=== PATIENT | female | born 1955 | race African-American/Black ===

== ENCOUNTER 2016-12-05 04:11 | Inpatient (IN) | payer MEDICARE, MEDICAID ==
[2016-12-05] VITALS (55 sets, daily range): BP systolic 67–146; BP diastolic 16–111
[~2016-12-05] VITALS: Ht 172.7 cm; Wt 95.3 kg
[~2016-12-05 04:11] MED LIST: CINA30 PO; DIPH25CA83 PO; GABA-290 PO; SEVE800T8 PO; SIMV10TA2; TRAM50TA3 PO; VITA-290
[2016-12-05 05:21] LABS: INR 2.3; PROTHROMBIN TIME 23.4 sec
[2016-12-05 05:27] LABS: HEMATOCRIT. 38.2 % (36.0-48.0); HEMOGLOBIN. 12.7 g/dL (12.0-16.0); MEAN CORPUSCULAR HEMOGLOBIN 30.3 pg (28.0-32.0); MEAN PLATELET VOLUME 9.4 fl (7.4-10.4); PLATELET 65 x1000/uL (130-400); RED BLOOD CELL COUNT 4.19 mill/uL (4.2-5.4); RED CELL DISTRIBUTION WIDTH 16.1 % (11.6-14.6)
[2016-12-05 05:31] LABS: CARBON DIOXIDE 29 mEq/L (21-32); CHLORIDE 92 mEq/L (98-107); TROPONIN I 0.15 ng/mL (0.00-0.04)
[2016-12-05] MEDS ORDERED: SODIUM CHLORIDE 0.9% 500 ML IV ONE (05:34)
[2016-12-05] MEDS ORDERED: PIPERACILLIN/TAZ 3.375G PREMIX 50 ML IV ONE (05:45)
[2016-12-05] MEDS ORDERED: VANCOMYCIN 1,500 MG in DEXT 5% WATER 250 ML IV SCH (05:45)
[2016-12-05] MEDS ORDERED: LEVOFLOXACIN 750MG PREMIX 150 ML IV ONE (05:45)
[2016-12-05] MEDS ORDERED: ONDANSETRON HCL 4MG/2ML VIAL IV STA (06:13)
[2016-12-05] MEDS ORDERED: MORPHINE SULFATE 4 MG/ML CPJ (NOT FOR IM USE) IV STA (06:13)
[2016-12-05] MEDS ORDERED: ASPIRIN 325MG TABLET PO ONE (06:15)
[2016-12-05] MEDS ORDERED: ENOXAPARIN 40MG/0.4ML SYR SUBCUT SCH (07:15)
[2016-12-05] MEDS ORDERED: ACETAMINOPHEN 325MG TABLET PO PRN (07:15)
[2016-12-05] MEDS ORDERED: CLONIDINE 0.1MG TABLET PO PRN (07:15)
[2016-12-05] MEDS ORDERED: PIPERACILLIN/TAZ 3.375G PREMIX 50 ML IV SCH (07:15)
[2016-12-05] MEDS ORDERED: HYDROMORPHONE HCL/PF 2MG/ML CPJ IV PRN (07:15)
[2016-12-05] MEDS ORDERED: ONDANSETRON HCL 4MG/2ML VIAL IV PRN (07:15)
[2016-12-05] MEDS ORDERED: SODIUM CHLORIDE 0.45% 1,000 ML IV SCH (07:30)
[2016-12-05] MEDS ORDERED: NOREPINEPHRINE 4 MG in DEXT 5% WATER 246 ML IV ONE (07:45)
[2016-12-05] MEDS ORDERED: NOREPINEPHRINE 4 MG in DEXT 5% WATER 246 ML IV PRN (08:00)
[2016-12-05] MEDS ORDERED: DEXTROSE 50% WATER 50ML SYRINGE IV ONE ×2 (09:45→09:48)
[2016-12-05] MEDS ORDERED: ETOMIDATE 2MG/ML 10ML VIAL IV ONE (10:00)
[2016-12-05] MEDS ORDERED: SUCCINYLCHOLINE CHLORIDE 200MG/10ML VIAL IV ONE (10:00)
[2016-12-05 10:31] LABS: PLATELET ESTIMATE DECREASED
[2016-12-05 11:52] LABS: BG BASE EXCESS -1.1 mmol/L (-2.0-2.0); BG CARBOXYHEMOGLOBIN 1.7 % (0.5-1.5); BG DEOXYHEMOGLOBIN 13.1 % (0.0-5.0); BG FRACTION INSPIRED OXYGEN 36; BG HCO3 ACT 23.7 mmol/L (22.0-26.0); BG METHEMOGLOBIN 0.4 % (0.0-1.5); BG OXYGEN SATURATION 86.6 % (92.0-98.5); BG OXYHEMOGLOBIN 84.8 % (94.0-97.0); BG PCO2 39.7 mmHg (35.0-45.0); BG PH 7.393 (7.350-7.450); BG PO2 58.1 mmHg (75.0-100.0); BG SAMPLE SITE LEFT RADIAL; BG TOTAL HEMOGLOBIN 13.2 g/dL (12.0-18.0); BG VENT MODE NASAL CANNULA
[2016-12-05] MEDS ORDERED: ENOXAPARIN 30MG/0.3ML SYR SUBCUT SCH (12:00)
[2016-12-05] MEDS ORDERED: IPRATROPIUM/ALBUTEROL 0.5-3(2.5)MG/3ML NEB INH SCH (12:00)
[2016-12-05] MEDS ORDERED: RACEPINEPHRINE 2.25% 0.5ML NEB VIAL HHN PRN (12:30)
[2016-12-05] MEDS: PROPOFOL 10MG/ML 100ML 100 ML IV PRN ×2 (12:41→19:17)
[2016-12-05] MEDS ORDERED: PIPERACILLIN/TAZ 2.25G PREMIX 50 ML IV SCH (14:00)
[2016-12-05 14:34] LABS: BG BASE EXCESS -3.5 mmol/L (-2.0-2.0); BG CARBOXYHEMOGLOBIN 1.5 % (0.5-1.5); BG DEOXYHEMOGLOBIN 13.8 % (0.0-5.0); BG FRACTION INSPIRED OXYGEN 100; BG METHEMOGLOBIN 0.4 % (0.0-1.5); BG OXYGEN SATURATION 85.9 % (92.0-98.5); BG OXYHEMOGLOBIN 84.3 % (94.0-97.0); BG PCO2 47.7 mmHg (35.0-45.0); BG PH 7.302 (7.350-7.450); BG PO2 59.4 mmHg (75.0-100.0); BG SAMPLE SITE LEFT RADIAL; BG TIDAL VOLUME(mL) 500 mL; BG VENT MODE VENT - A/C; BG VENT RATE 12 set
[2016-12-05] MEDS: NOREPINEPHRINE 16 MG in DEXT 5% WATER 234 ML IV PRN ×2 (15:32→21:43)
[2016-12-05] MEDS: PANTOPRAZOLE SODIUM 40 MG/VIAL IV SCH (15:35)
[2016-12-05] MEDS: IPRATROPIUM/ALBUTEROL 0.5-3(2.5)MG/3ML NEB INH SCH ×3 (16:13→23:24)
[2016-12-05] MEDS: ACETYLCYSTEINE 100MG/ML 10% VIAL 4ML INH SCH ×2 (16:14→23:24)
[2016-12-05] MEDS: PHENYLEPHRINE 40 MG in DEXT 5% WATER 246 ML IV PRN ×2 (16:46→20:36)
[2016-12-05 17:14] LABS: BG BASE EXCESS -5.7 mmol/L (-2.0-2.0); BG CARBOXYHEMOGLOBIN 1.3 % (0.5-1.5); BG DEOXYHEMOGLOBIN 4.1 % (0.0-5.0); BG FRACTION INSPIRED OXYGEN 100; BG HCO3 ACT 19.5 mmol/L (22.0-26.0); BG METHEMOGLOBIN 0.4 % (0.0-1.5); BG OXYGEN SATURATION 95.8 % (92.0-98.5); BG OXYHEMOGLOBIN 94.2 % (94.0-97.0); BG PCO2 37.2 mmHg (35.0-45.0); BG PH 7.337 (7.350-7.450); BG PO2 87.9 mmHg (75.0-100.0); BG SAMPLE SITE LEFT RADIAL; BG TIDAL VOLUME(mL) 500 mL; BG TOTAL HEMOGLOBIN 14.3 g/dL (12.0-18.0); BG VENT MODE VENT - A/C; BG VENT RATE 16 set
[2016-12-05] MEDS: MEROPENEM 1,000 MG in SODIUM CHLORIDE 0.9% 100 ML IV SCH (17:30)
[2016-12-05] MEDS: GUAIFENESIN 200MG TABLET PO SCH ×2 (17:43→22:22)
[2016-12-05] MEDS: DOXYCYCLINE 100 MG in DEXT 5% WATER 100 ML IV SCH (18:23)
[2016-12-05] MEDS ORDERED: PROPOFOL 10MG/ML 100ML 100 ML IV PRN (19:45)
[2016-12-06] VITALS (100 sets, daily range): BP systolic 46–166; BP diastolic 24–115
[2016-12-06] MEDS: PHENYLEPHRINE 40 MG in DEXT 5% WATER 246 ML IV PRN (00:20)
[2016-12-06] MEDS: PHENYLEPHRINE 80 MG in DEXT 5% WATER 500 ML IV PRN ×3 (03:27→19:03)
[2016-12-06] MEDS: PROPOFOL 10MG/ML 100ML 100 ML IV PRN ×2 (03:28→15:54)
[2016-12-06] MEDS: ACETYLCYSTEINE 100MG/ML 10% VIAL 4ML INH SCH (04:21)
[2016-12-06] MEDS: IPRATROPIUM/ALBUTEROL 0.5-3(2.5)MG/3ML NEB INH SCH ×5 (04:22→20:30)
[2016-12-06 05:31] LABS: HEMATOCRIT. 43.3 % (36.0-48.0); HEMOGLOBIN. 13.8 g/dL (12.0-16.0); MEAN CORPUSCULAR HEMOGLOBIN 30.6 pg (28.0-32.0); MEAN CORPUSCULAR VOLUME 95.7 fL (81.0-99.0); MEAN PLATELET VOLUME 9.7 fl (7.4-10.4); PLATELET 56 x1000/uL (130-400); RED BLOOD CELL COUNT 4.52 mill/uL (4.2-5.4)
[2016-12-06] MEDS: GUAIFENESIN 200MG TABLET PO SCH (05:52)
[2016-12-06] MEDS: DOXYCYCLINE 100 MG in DEXT 5% WATER 100 ML IV SCH ×2 (06:00→18:00)
[2016-12-06 07:02] LABS: PLATELET ESTIMATE DECREASED
[2016-12-06 08:31] LABS: BG BASE EXCESS -4.6 mmol/L (-2.0-2.0); BG CARBOXYHEMOGLOBIN 1.1 % (0.5-1.5); BG DEOXYHEMOGLOBIN 9.3 % (0.0-5.0); BG FRACTION INSPIRED OXYGEN 100; BG HCO3 ACT 20.7 mmol/L (22.0-26.0); BG METHEMOGLOBIN 0.4 % (0.0-1.5); BG OXYGEN SATURATION 90.6 % (92.0-98.5); BG OXYHEMOGLOBIN 89.2 % (94.0-97.0); BG PCO2 38.9 mmHg (35.0-45.0); BG PH 7.343 (7.350-7.450); BG PO2 64.7 mmHg (75.0-100.0); BG SAMPLE SITE LEFT RADIAL; BG TIDAL VOLUME(mL) 500 mL; BG TOTAL HEMOGLOBIN 13.8 g/dL (12.0-18.0); BG VENT MODE VENT - A/C; BG VENT RATE 16 set
[2016-12-06] MEDS: PANTOPRAZOLE SODIUM 40 MG/VIAL IV SCH (09:21)
[2016-12-06] MEDS: NOREPINEPHRINE 16 MG in DEXT 5% WATER 234 ML IV PRN ×2 (10:15→23:37)
[2016-12-06] MEDS: MORPHINE SULFATE 2 MG/ML CPJ (NOT FOR IM USE) IV PRN ×2 (12:28→17:09)
[2016-12-06] MEDS ORDERED: VANCOMYCIN 1500MG in DEXTROSE 5% WATER 250ML IV NR (14:00)
[2016-12-06] MEDS: MEROPENEM 1,000 MG in SODIUM CHLORIDE 0.9% 100 ML IV SCH (18:00)
[2016-12-06] MEDS ORDERED: DIGOXIN 500MCG/2ML AMP IV NR (19:00)
[2016-12-07] VITALS (108 sets, daily range): BP systolic 61–146; BP diastolic 22–128
[2016-12-07] MEDS: IPRATROPIUM/ALBUTEROL 0.5-3(2.5)MG/3ML NEB INH SCH ×2 (00:33→04:19)
[2016-12-07] MEDS: PHENYLEPHRINE 80 MG in DEXT 5% WATER 500 ML IV PRN ×3 (02:33→18:07)
[2016-12-07 05:47] LABS: HEMATOCRIT. 35.7 % (36.0-48.0); HEMOGLOBIN. 11.8 g/dL (12.0-16.0); INR 1.9; MEAN CORPUSCULAR HEMOGLOBIN 30.1 pg (28.0-32.0); MEAN CORPUSCULAR VOLUME 90.9 fL (81.0-99.0); MEAN PLATELET VOLUME 10.6 fl (7.4-10.4); PROTHROMBIN TIME 20.1 sec; RED BLOOD CELL COUNT 3.93 mill/uL (4.2-5.4); RED CELL DISTRIBUTION WIDTH 16.4 % (11.6-14.6)
[2016-12-07 05:55] LABS: PHOSPHORUS 3.9 mg/dL (2.5-4.9)
[2016-12-07] MEDS: DOXYCYCLINE 100 MG in DEXT 5% WATER 100 ML IV SCH (06:05)
[2016-12-07 06:07] LABS: PLATELET 43 x1000/uL (130-400)
[2016-12-07 07:45] LABS: BG BASE EXCESS -6.1 mmol/L (-2.0-2.0); BG CARBOXYHEMOGLOBIN 1.1 % (0.5-1.5); BG DEOXYHEMOGLOBIN 8.2 % (0.0-5.0); BG HCO3 ACT 18.9 mmol/L (22.0-26.0); BG METHEMOGLOBIN 0.4 % (0.0-1.5); BG OXYGEN SATURATION 91.7 % (92.0-98.5); BG OXYHEMOGLOBIN 90.3 % (94.0-97.0); BG PCO2 35.9 mmHg (35.0-45.0); BG PH 7.339 (7.350-7.450); BG PO2 67.4 mmHg (75.0-100.0); BG SAMPLE SITE RIGHT RADIAL; BG TIDAL VOLUME(mL) 500 mL; BG TOTAL HEMOGLOBIN 13.1 g/dL (12.0-18.0); BG VENT MODE VENT - A/C; BG VENT RATE 16 set
[2016-12-07] MEDS: PROPOFOL 10MG/ML 100ML 100 ML IV PRN (07:52)
[2016-12-07] MEDS: PANTOPRAZOLE SODIUM 40 MG/VIAL IV SCH (09:24)
[2016-12-07 10:02] LABS: PLATELET ESTIMATE MARKEDLY DECREASED
[2016-12-07] MEDS: IPRATROPIUM BROMIDE (0.02%) 0.5MG/2.5ML NEB HHN SCH ×3 (12:14→20:50)
[2016-12-07 13:20] LABS: HEMATOCRIT 33.8 % (36.0-48.0); HEMOGLOBIN 11.2 g/dL (12.0-16.0)
[2016-12-07] MEDS ORDERED: PROPOFOL 10MG/ML 100ML 100 ML IV PRN (16:00)
[2016-12-07] MEDS: MEROPENEM 1,000 MG in SODIUM CHLORIDE 0.9% 100 ML IV SCH (17:19)
[2016-12-07] MEDS ORDERED: DOPAMINE IV ONE (21:42)
[2016-12-07 23:05] LABS: BG BASE EXCESS -4.7 mmol/L (-2.0-2.0); BG CARBOXYHEMOGLOBIN 1.3 % (0.5-1.5); BG DEOXYHEMOGLOBIN 2.7 % (0.0-5.0); BG FRACTION INSPIRED OXYGEN 100; BG HCO3 ACT 18.9 mmol/L (22.0-26.0); BG METHEMOGLOBIN 0.3 % (0.0-1.5); BG OXYGEN SATURATION 97.3 % (92.0-98.5); BG OXYHEMOGLOBIN 95.7 % (94.0-97.0); BG PCO2 31.2 mmHg (35.0-45.0); BG PH 7.401 (7.350-7.450); BG PO2 96.3 mmHg (75.0-100.0); BG SAMPLE SITE LEFT BRACHIAL; BG TIDAL VOLUME(mL) 480 mL; BG TOTAL HEMOGLOBIN 13.6 g/dL (12.0-18.0); BG VENT MODE VENT - A/C; BG VENT RATE 16 set
[2016-12-08] VITALS (102 sets, daily range): BP systolic 74–159; BP diastolic 32–125
[2016-12-08] MEDS: NOREPINEPHRINE 16 MG in DEXT 5% WATER 234 ML IV PRN ×2 (00:11→17:36)
[2016-12-08] MEDS: IPRATROPIUM BROMIDE (0.02%) 0.5MG/2.5ML NEB HHN SCH ×6 (00:46→20:01)
[2016-12-08] MEDS ORDERED: DOPAMINE 400MG PREMIX 250 ML IV PRN (01:00)
[2016-12-08] MEDS: PHENYLEPHRINE 80 MG in DEXT 5% WATER 500 ML IV PRN ×3 (02:05→17:37)
[2016-12-08 07:05] LABS: HEMATOCRIT. 36.4 % (36.0-48.0); HEMOGLOBIN. 12.2 g/dL (12.0-16.0); MEAN CORPUSCULAR VOLUME 89.3 fL (81.0-99.0); MEAN PLATELET VOLUME 10.8 fl (7.4-10.4); RED BLOOD CELL COUNT 4.07 mill/uL (4.2-5.4); RED CELL DISTRIBUTION WIDTH 16.2 % (11.6-14.6)
[2016-12-08] MEDS ORDERED: DEXTROSE 50% WATER 50ML SYRINGE IV PRN (07:15)
[2016-12-08] MEDS: PANTOPRAZOLE SODIUM 40 MG/VIAL IV SCH (09:11)
[2016-12-08 09:41] LABS: PLATELET ESTIMATE MARKEDLY DECREASED
[2016-12-08 09:42] LABS: PLATELET 41 x1000/uL (130-400)
[2016-12-08] MEDS: BLOOD SUGAR DIAGNOSTIC STRIP TEST SCH ×2 (11:38→17:37)
[2016-12-08] MEDS: INSULIN LISPRO 100 UNITS/ML SUBCUT SCH ×2 (11:38→17:37)
[2016-12-08] MEDS: METOCLOPRAMIDE HCL 10MG/2ML VIAL IV SCH ×2 (11:47→17:38)
[2016-12-08] MEDS ORDERED: ALBUMIN HUMAN 25GM/100ML (25%) IV NR (16:00)
[2016-12-08] MEDS: MEROPENEM 1,000 MG in SODIUM CHLORIDE 0.9% 100 ML IV SCH (17:38)
[2016-12-08] MEDS ORDERED: DIGOXIN 500MCG/2ML AMP IV NR (19:30)
[2016-12-08 20:20] LABS: BG BASE EXCESS -3.7 mmol/L (-2.0-2.0); BG DEOXYHEMOGLOBIN 1.6 % (0.0-5.0); BG FRACTION INSPIRED OXYGEN 100; BG HCO3 ACT 21.3 mmol/L (22.0-26.0); BG METHEMOGLOBIN 0.3 % (0.0-1.5); BG OXYGEN SATURATION 98.4 % (92.0-98.5); BG OXYHEMOGLOBIN 97.1 % (94.0-97.0); BG PCO2 38.4 mmHg (35.0-45.0); BG PH 7.361 (7.350-7.450); BG SAMPLE SITE LEFT RADIAL; BG TIDAL VOLUME(mL) 480 mL; BG TOTAL HEMOGLOBIN 13.7 g/dL (12.0-18.0); BG VENT MODE VENT - A/C; BG VENT RATE 16 set
[2016-12-09] VITALS (94 sets, daily range): BP systolic 73–200; BP diastolic 26–107
[2016-12-09] MEDS: IPRATROPIUM BROMIDE (0.02%) 0.5MG/2.5ML NEB HHN SCH ×6 (00:17→19:45)
[2016-12-09] MEDS: BLOOD SUGAR DIAGNOSTIC STRIP TEST SCH ×5 (00:42→23:26)
[2016-12-09] MEDS: METOCLOPRAMIDE HCL 10MG/2ML VIAL IV SCH ×5 (00:48→23:29)
[2016-12-09] MEDS: PHENYLEPHRINE 80 MG in DEXT 5% WATER 500 ML IV PRN ×3 (01:57→17:53)
[2016-12-09] MEDS: NOREPINEPHRINE 16 MG in DEXT 5% WATER 234 ML IV PRN ×2 (04:00→15:40)
[2016-12-09] MEDS: PROPOFOL 10MG/ML 100ML 100 ML IV PRN ×2 (05:24→18:02)
[2016-12-09] MEDS: INSULIN LISPRO 100 UNITS/ML SUBCUT SCH ×5 (05:30→23:26)
[2016-12-09 07:28] LABS: BG BASE EXCESS -2.9 mmol/L (-2.0-2.0); BG CARBOXYHEMOGLOBIN 0.9 % (0.5-1.5); BG FRACTION INSPIRED OXYGEN 100; BG HCO3 ACT 21.4 mmol/L (22.0-26.0); BG METHEMOGLOBIN 0.4 % (0.0-1.5); BG OXYGEN SATURATION 86.8 % (92.0-98.5); BG OXYHEMOGLOBIN 85.7 % (94.0-97.0); BG PCO2 35.7 mmHg (35.0-45.0); BG PH 7.395 (7.350-7.450); BG PO2 56.8 mmHg (75.0-100.0); BG SAMPLE SITE LEFT RADIAL; BG TIDAL VOLUME(mL) 480 mL; BG TOTAL HEMOGLOBIN 13.1 g/dL (12.0-18.0); BG VENT MODE VENT - A/C; BG VENT RATE 16 set
[2016-12-09] MEDS: PANTOPRAZOLE SODIUM 40 MG/VIAL IV SCH (08:50)
[2016-12-09 09:50] LABS: HEMATOCRIT. 34.8 % (36.0-48.0); HEMOGLOBIN. 11.7 g/dL (12.0-16.0); MEAN CORPUSCULAR VOLUME 88.9 fL (81.0-99.0); MEAN PLATELET VOLUME 11.4 fl (7.4-10.4); RED BLOOD CELL COUNT 3.91 mill/uL (4.2-5.4)
[2016-12-09 09:59] LABS: PHOSPHORUS 2.7 mg/dL (2.5-4.9)
[2016-12-09 10:02] LABS: D-DIMER 14.64 mg/L FEU (<0.50)
[2016-12-09 10:04] LABS: PLATELET 27 x1000/uL (130-400)
[2016-12-09 10:31] LABS: PLATELET ESTIMATE MARKEDLY DECREASED
[2016-12-09] MEDS ORDERED: DILTIAZEM HCL 125 MG in DEXT 5% WATER 100 ML IV PRN (11:00)
[2016-12-09 13:23] LABS: BG BASE EXCESS 0.1 mmol/L (-2.0-2.0); BG CARBOXYHEMOGLOBIN 1.2 % (0.5-1.5); BG DEOXYHEMOGLOBIN 7.6 % (0.0-5.0); BG FRACTION INSPIRED OXYGEN 100; BG HCO3 ACT 24.4 mmol/L (22.0-26.0); BG METHEMOGLOBIN 0.5 % (0.0-1.5); BG OXYGEN SATURATION 92.3 % (92.0-98.5); BG OXYHEMOGLOBIN 90.7 % (94.0-97.0); BG PCO2 38.5 mmHg (35.0-45.0); BG PO2 67.8 mmHg (75.0-100.0); BG SAMPLE SITE LEFT BRACHIAL; BG TIDAL VOLUME(mL) 480 mL; BG TOTAL HEMOGLOBIN 13.7 g/dL (12.0-18.0); BG VENT MODE VENT - A/C; BG VENT RATE 16 set
[2016-12-09] MEDS: EPINEPHRINE 1 MG in SODIUM CHLORIDE 0.9% 249 ML IV PRN (15:38)
[2016-12-09] MEDS: CEFEPIME 1,000 MG in DEXTROSE 5% WATER 50 ML IV SCH (16:32)
[2016-12-10] VITALS (103 sets, daily range): BP systolic 68–115; BP diastolic 31–78
[2016-12-10] MEDS: IPRATROPIUM BROMIDE (0.02%) 0.5MG/2.5ML NEB HHN SCH ×6 (00:14→19:59)
[2016-12-10] MEDS: NOREPINEPHRINE 16 MG in DEXT 5% WATER 234 ML IV PRN ×3 (01:08→19:44)
[2016-12-10] MEDS: PHENYLEPHRINE 80 MG in DEXT 5% WATER 500 ML IV PRN ×3 (02:55→19:43)
[2016-12-10] MEDS: INSULIN LISPRO 100 UNITS/ML SUBCUT SCH ×3 (06:00→17:25)
[2016-12-10] MEDS: BLOOD SUGAR DIAGNOSTIC STRIP TEST SCH ×3 (06:02→17:26)
[2016-12-10] MEDS: METOCLOPRAMIDE HCL 10MG/2ML VIAL IV SCH ×3 (06:08→17:25)
[2016-12-10 08:04] LABS: BG BASE EXCESS -3.5 mmol/L (-2.0-2.0); BG CARBOXYHEMOGLOBIN 1.2 % (0.5-1.5); BG DEOXYHEMOGLOBIN 1.3 % (0.0-5.0); BG FRACTION INSPIRED OXYGEN 100; BG HCO3 ACT 21.9 mmol/L (22.0-26.0); BG METHEMOGLOBIN 0.5 % (0.0-1.5); BG OXYGEN SATURATION 98.7 % (92.0-98.5); BG PCO2 40.4 mmHg (35.0-45.0); BG PH 7.351 (7.350-7.450); BG PO2 121.6 mmHg (75.0-100.0); BG SAMPLE SITE LEFT RADIAL; BG TIDAL VOLUME(mL) 480 mL; BG TOTAL HEMOGLOBIN 13.9 g/dL (12.0-18.0); BG VENT MODE VENT - A/C; BG VENT RATE 16 set
[2016-12-10] MEDS: PANTOPRAZOLE SODIUM 40 MG/VIAL IV SCH (08:19)
[2016-12-10 08:30] LABS: HEMATOCRIT. 36.2 % (36.0-48.0); MEAN CORPUSCULAR HEMOGLOBIN 29.9 pg (28.0-32.0); MEAN CORPUSCULAR VOLUME 90.5 fL (81.0-99.0); MEAN PLATELET VOLUME 9.7 fl (7.4-10.4); PLATELET 52 x1000/uL (130-400); RED CELL DISTRIBUTION WIDTH 16.4 % (11.6-14.6)
[2016-12-10 09:38] LABS: PLATELET ESTIMATE DECREASED
[2016-12-10] MEDS: EPINEPHRINE 1 MG in SODIUM CHLORIDE 0.9% 249 ML IV PRN ×3 (10:10→17:45)
[2016-12-10] MEDS: CEFEPIME 1,000 MG in DEXTROSE 5% WATER 50 ML IV SCH (14:57)
[2016-12-10] MEDS ORDERED: PROPOFOL 10MG/ML 100ML 100 ML IV PRN (15:05)
[2016-12-10] MEDS ORDERED: DIGOXIN 500MCG/2ML AMP IV NR (17:12)
[2016-12-10] MEDS: EPINEPHRINE 2 MG in SODIUM CHLORIDE 0.9% 248 ML IV PRN (23:15)
[2016-12-11] VITALS (101 sets, daily range): BP systolic 14–124; BP diastolic 5–120
[2016-12-11] MEDS: IPRATROPIUM BROMIDE (0.02%) 0.5MG/2.5ML NEB HHN SCH ×6 (00:22→20:14)
[2016-12-11] MEDS: BLOOD SUGAR DIAGNOSTIC STRIP TEST SCH ×4 (00:57→18:36)
[2016-12-11] MEDS: METOCLOPRAMIDE HCL 10MG/2ML VIAL IV SCH ×4 (00:57→17:15)
[2016-12-11] MEDS: PHENYLEPHRINE 80 MG in DEXT 5% WATER 500 ML IV PRN (01:43)
[2016-12-11] MEDS: EPINEPHRINE 2 MG in SODIUM CHLORIDE 0.9% 248 ML IV PRN (01:45)
[2016-12-11] MEDS: NOREPINEPHRINE 16 MG in DEXT 5% WATER 234 ML IV PRN ×3 (03:19→21:55)
[2016-12-11] MEDS: INSULIN LISPRO 100 UNITS/ML SUBCUT SCH ×4 (05:05→18:00)
[2016-12-11 06:20] LABS: HEMATOCRIT. 37.4 % (36.0-48.0); HEMOGLOBIN. 12.6 g/dL (12.0-16.0); MEAN CORPUSCULAR HEMOGLOBIN 29.6 pg (28.0-32.0); MEAN CORPUSCULAR VOLUME 87.7 fL (81.0-99.0); RED BLOOD CELL COUNT 4.26 mill/uL (4.2-5.4)
[2016-12-11 06:32] LABS: PLATELET 45 x1000/uL (130-400)
[2016-12-11] MEDS ORDERED: EPINEPHRINE 1 MG in SODIUM CHLORIDE 0.9% 249 ML IV PRN (07:45)
[2016-12-11 08:10] LABS: BG BASE EXCESS -5.9 mmol/L (-2.0-2.0); BG CARBOXYHEMOGLOBIN 1.5 % (0.5-1.5); BG DEOXYHEMOGLOBIN 6.7 % (0.0-5.0); BG FRACTION INSPIRED OXYGEN 90; BG HCO3 ACT 19.6 mmol/L (22.0-26.0); BG METHEMOGLOBIN 0.4 % (0.0-1.5); BG OXYGEN SATURATION 93.2 % (92.0-98.5); BG OXYHEMOGLOBIN 91.4 % (94.0-97.0); BG PCO2 38.4 mmHg (35.0-45.0); BG PH 7.325 (7.350-7.450); BG PO2 71.7 mmHg (75.0-100.0); BG SAMPLE SITE LEFT BRACHIAL; BG TIDAL VOLUME(mL) 480 mL; BG TOTAL HEMOGLOBIN 13.7 g/dL (12.0-18.0); BG VENT MODE VENT - A/C; BG VENT RATE 16 set
[2016-12-11] MEDS: EPINEPHRINE 4 MG in SODIUM CHLORIDE 0.9% 246 ML IV PRN ×3 (08:33→22:30)
[2016-12-11] MEDS: PANTOPRAZOLE SODIUM 40 MG/VIAL IV SCH (09:31)
[2016-12-11 09:58] LABS: PLATELET ESTIMATE MARKEDLY DECREASED
[2016-12-11] MEDS: PHENYLEPHRINE 80 MG in DEXT 5% WATER 492 ML IV PRN ×2 (10:56→18:30)
[2016-12-11] MEDS: CEFEPIME 1,000 MG in DEXTROSE 5% WATER 50 ML IV SCH (15:05)
[2016-12-11 16:49] LABS: BG BASE EXCESS -6.6 mmol/L (-2.0-2.0); BG CARBOXYHEMOGLOBIN 1.5 % (0.5-1.5); BG DEOXYHEMOGLOBIN 11.1 % (0.0-5.0); BG FRACTION INSPIRED OXYGEN 100; BG HCO3 ACT 17.8 mmol/L (22.0-26.0); BG METHEMOGLOBIN 0.5 % (0.0-1.5); BG OXYGEN SATURATION 88.7 % (92.0-98.5); BG OXYHEMOGLOBIN 86.9 % (94.0-97.0); BG PCO2 32.4 mmHg (35.0-45.0); BG PH 7.358 (7.350-7.450); BG PO2 59.1 mmHg (75.0-100.0); BG SAMPLE SITE LEFT BRACHIAL; BG TIDAL VOLUME(mL) 480 mL; BG TOTAL HEMOGLOBIN 13.8 g/dL (12.0-18.0); BG VENT MODE VENT - A/C; BG VENT RATE 16 set
[2016-12-11] MEDS ORDERED: SODIUM BICARBONATE 8.4% 1 MEQ/ML 50ML SYR IV NR (17:15)
[2016-12-11] MEDS: PETROLATUM,WHITE OPHTH OINT 3.5GM BOTHEYE SCH (21:54)
[2016-12-11] MEDS: PROPOFOL 10MG/ML 100ML 100 ML IV PRN (23:17)
[2016-12-12] VITALS (95 sets, daily range): BP systolic 61–187; BP diastolic 30–130
[2016-12-12] MEDS: BLOOD SUGAR DIAGNOSTIC STRIP TEST SCH ×4 (00:13→18:37)
[2016-12-12] MEDS: METOCLOPRAMIDE HCL 10MG/2ML VIAL IV SCH ×4 (00:17→18:36)
[2016-12-12] MEDS: IPRATROPIUM BROMIDE (0.02%) 0.5MG/2.5ML NEB HHN SCH ×6 (00:25→20:30)
[2016-12-12] MEDS: PHENYLEPHRINE 80 MG in DEXT 5% WATER 492 ML IV PRN ×3 (02:38→17:58)
[2016-12-12 05:41] LABS: HEMATOCRIT. 37.8 % (36.0-48.0); MEAN CORPUSCULAR HEMOGLOBIN 30.2 pg (28.0-32.0); MEAN CORPUSCULAR VOLUME 87.5 fL (81.0-99.0); MEAN PLATELET VOLUME 11.8 fl (7.4-10.4); RED BLOOD CELL COUNT 4.32 mill/uL (4.2-5.4)
[2016-12-12] MEDS: EPINEPHRINE 4 MG in SODIUM CHLORIDE 0.9% 246 ML IV PRN ×3 (05:41→19:34)
[2016-12-12] MEDS: INSULIN LISPRO 100 UNITS/ML SUBCUT SCH ×4 (06:00→18:00)
[2016-12-12] MEDS: NOREPINEPHRINE 16 MG in DEXT 5% WATER 234 ML IV PRN ×2 (06:20→13:54)
[2016-12-12 07:07] LABS: PLATELET ESTIMATE MARKEDLY DECREASED
[2016-12-12 07:08] LABS: PLATELET 42 x1000/uL (130-400)
[2016-12-12 07:22] LABS: PHOSPHORUS 4.1 mg/dL (2.5-4.9)
[2016-12-12 08:24] LABS: BG BASE EXCESS -7.5 mmol/L (-2.0-2.0); BG CARBOXYHEMOGLOBIN 1.2 % (0.5-1.5); BG FRACTION INSPIRED OXYGEN 100; BG HCO3 ACT 18.3 mmol/L (22.0-26.0); BG METHEMOGLOBIN 0.4 % (0.0-1.5); BG OXYGEN SATURATION 89.8 % (92.0-98.5); BG OXYHEMOGLOBIN 88.4 % (94.0-97.0); BG PCO2 38.4 mmHg (35.0-45.0); BG PH 7.296 (7.350-7.450); BG PO2 65.4 mmHg (75.0-100.0); BG SAMPLE SITE LEFT BRACHIAL; BG TIDAL VOLUME(mL) 480 mL; BG VENT MODE VENT - A/C; BG VENT RATE 16 set
[2016-12-12] MEDS: PETROLATUM,WHITE OPHTH OINT 3.5GM BOTHEYE SCH ×2 (09:50→21:48)
[2016-12-12] MEDS: PANTOPRAZOLE SODIUM 40 MG/VIAL IV SCH (09:50)
[2016-12-12] MEDS: MEROPENEM 1,000 MG in SODIUM CHLORIDE 0.9% 100 ML IV SCH (13:55)
[2016-12-12] MEDS: PROPOFOL 10MG/ML 100ML 100 ML IV PRN (13:55)
[2016-12-13] VITALS (52 sets, daily range): BP systolic 84–143; BP diastolic 41–79
[2016-12-13] MEDS: NOREPINEPHRINE 16 MG in DEXT 5% WATER 234 ML IV PRN ×2 (00:31→09:39)
[2016-12-13] MEDS: BLOOD SUGAR DIAGNOSTIC STRIP TEST SCH ×3 (00:37→12:00)
[2016-12-13] MEDS: METOCLOPRAMIDE HCL 10MG/2ML VIAL IV SCH ×3 (00:39→12:00)
[2016-12-13] MEDS: IPRATROPIUM BROMIDE (0.02%) 0.5MG/2.5ML NEB HHN SCH ×4 (00:40→13:25)
[2016-12-13] MEDS: PHENYLEPHRINE 80 MG in DEXT 5% WATER 492 ML IV PRN ×2 (03:12→12:01)
[2016-12-13] MEDS: EPINEPHRINE 4 MG in SODIUM CHLORIDE 0.9% 246 ML IV PRN ×2 (03:12→12:01)
[2016-12-13] MEDS: INSULIN LISPRO 100 UNITS/ML SUBCUT SCH ×3 (05:52→12:00)
[2016-12-13 07:25] LABS: BG BASE EXCESS -8.5 mmol/L (-2.0-2.0); BG CARBOXYHEMOGLOBIN 1.3 % (0.5-1.5); BG DEOXYHEMOGLOBIN 0.3 % (0.0-5.0); BG FRACTION INSPIRED OXYGEN 100; BG HCO3 ACT 15.9 mmol/L (22.0-26.0); BG METHEMOGLOBIN 0.5 % (0.0-1.5); BG OXYGEN SATURATION 99.7 % (92.0-98.5); BG OXYHEMOGLOBIN 97.9 % (94.0-97.0); BG PCO2 29.9 mmHg (35.0-45.0); BG PH 7.343 (7.350-7.450); BG PO2 329.6 mmHg (75.0-100.0); BG SAMPLE SITE LEFT RADIAL; BG TIDAL VOLUME(mL) 480 mL; BG TOTAL HEMOGLOBIN 13.3 g/dL (12.0-18.0); BG VENT MODE VENT - A/C; BG VENT RATE 16 set
[2016-12-13] MEDS ORDERED: MORPHINE SULFATE 100 MG in DEXT 5% WATER 90 ML IV PRN (08:30)
[2016-12-13] MEDS: PETROLATUM,WHITE OPHTH OINT 3.5GM BOTHEYE SCH (08:39)
[2016-12-13 09:09] LABS: IMMUNOGLOBULIN A 334 mg/dL (87-352); IMMUNOGLOBULIN G 1379 mg/dL (700-1600); IMMUNOGLOBULIN M 96 mg/dL (26-217)
[2016-12-13] MEDS: MEROPENEM 1,000 MG in SODIUM CHLORIDE 0.9% 100 ML IV SCH (09:14)
[2016-12-13 14:20] LABS: ANTI-NUCLEAR ANTIBODIES DIRECT Negative (Negative)
[2016-12-18 15:13] LABS: HLA CLASS 1 ANTIBODY Positive (Negative); IIb/IIIa ANTIBODY Positive (Negative); Ia/IIa ANTIBODY Positive (Negative); Ib/IX ANTIBODY Negative (Negative)
== END 2016-12-13 14:38 | disposition expired | DRG 870 ==
LOC: ER 05:49 → MICUSO 06:26 → EDBEDREQ 06:42 → EDBEDREQSVC 06:43 → EDBEDREQ 07:48 → EDBEDREQTM 07:48 → CANRESERV 07:52 → ENRESERV 07:52
PROVIDERS: ADMIT Internal Medicine Nephrology; ATTEND Internal Medicine Nephrology
PROC: 5A1955Z Respiratory Ventilation, Greater than 96 Consecutive Hours (ICD-10-PCS; principal; 2016-12-05)
PROC: 0BH17EZ Insertion of Endotracheal Airway into Trachea, Via Natural or Artificial Opening (ICD-10-PCS; 2016-12-05)
PROC: 02HV33Z Insertion of Infusion Device into Superior Vena Cava, Percutaneous Approach (ICD-10-PCS; 2016-12-05)
PROC: B548ZZA Ultrasonography of Superior Vena Cava, Guidance (ICD-10-PCS; 2016-12-05)
PROC: 5A1D60Z (ICD-10-PCS; 2016-12-06)
PROC: 6A550Z2 Pheresis of Platelets, Single (ICD-10-PCS; 2016-12-09)
DX: A41.59 Other Gram-negative sepsis (principal); I21.4 Non-ST elevation (NSTEMI) myocardial infarction; J18.9 Pneumonia, unspecified organism; J96.01 Acute respiratory failure with hypoxia; N18.6 End stage renal disease; R65.21 Severe sepsis with septic shock; I50.23 Acute on chronic systolic (congestive) heart failure; D65 Disseminated intravascular coagulation [defibrination syndrome]; E43 Unspecified severe protein-calorie malnutrition; I13.2 Hypertensive heart and chronic kidney disease with heart failure and with stage 5 chronic kidney disease, or end stage renal disease; D68.62 Lupus anticoagulant syndrome; E87.1 Hypo-osmolality and hyponatremia; I42.9 Cardiomyopathy, unspecified; L97.419 Non-pressure chronic ulcer of right heel and midfoot with unspecified severity; R18.8 Other ascites; Z99.2 Dependence on renal dialysis; B96.89 Other specified bacterial agents as the cause of diseases classified elsewhere; E11.22 Type 2 diabetes mellitus with diabetic chronic kidney disease; E11.51 Type 2 diabetes mellitus with diabetic peripheral angiopathy without gangrene; E11.621 Type 2 diabetes mellitus with foot ulcer; E11.649 Type 2 diabetes mellitus with hypoglycemia without coma; E66.9 Obesity, unspecified; E78.5 Hyperlipidemia, unspecified; H54.41 Blindness, right eye, normal vision left eye; I07.1 Rheumatic tricuspid insufficiency; I25.10 Atherosclerotic heart disease of native coronary artery without angina pectoris; I27.81 Cor pulmonale (chronic); I27.2 Other secondary pulmonary hypertension; I45.10 Unspecified right bundle-branch block; I48.2 Chronic atrial fibrillation; I50.9 Heart failure, unspecified; K74.60 Unspecified cirrhosis of liver; L97.519 Non-pressure chronic ulcer of other part of right foot with unspecified severity; L97.529 Non-pressure chronic ulcer of other part of left foot with unspecified severity; Z66 Do not resuscitate; Z79.01 Long term (current) use of anticoagulants; Z86.73 Personal history of transient ischemic attack (TIA), and cerebral infarction without residual deficits; Z98.61 Coronary angioplasty status; Z68.31 Body mass index [BMI] 31.0-31.9, adult
CPT/HCPCS: 36415; 36569; 36600; 71010; 71275; 76937; 80048; 80051; 80053; 80076; 80202; 82375; 82784; 82805; 82962; 83605; 83735; 83880; 83921; 84100; 84443; 84478; 84484; 85014; 85018; 85025; 85379; 85384; 85610; 85730; 86022; 86038; 86334; 86703; 86850; 86900; 87040; 87070; 87077; 87106; 87186; 93005; 93306; 93970; 94002; 94003; 94640; 94664; 96365; 96366; 96367; 96375; 99291; C1725; C1893; C9113; J0171; J0330; J0692; J1160; J1265; J1815; J1956; J2185; J2270; J2370; J2405; J2543; J2704; J2765; J3370; J3490; J7030; J7040; J7050; J7060; J7608; J7620; P9034; P9047